=== PATIENT | male | born 1965 | race Caucasian/White ===

== ENCOUNTER 2019-07-11 07:06 | Day surgery (SDC) | payer MEDICAID ==
[~2019-07-11] VITALS: Ht 182.9 cm; Wt 72.7 kg
[2019-07-11 07:14] VITALS: BP 131/74
[2019-07-11] MEDS ORDERED: LIDOcaine Viscous 15ml cup ONE (07:21)
[2019-07-11] MEDS ORDERED: fentaNYL/PF 50MCG/1 ML 2ML syringe ONE (07:21)
[2019-07-11] MEDS ORDERED: HYDR-4353 PO (07:21)
[2019-07-11] MEDS ORDERED: MIDAZolam 5mg/5ml vial ONE (07:21)
[2019-07-11 08:40] VITALS: BP 99/57
[2019-07-11 08:50] VITALS: BP 99/55
[2019-07-11 09:00] VITALS: BP 95/64
== END 2019-07-11 09:15 | disposition home or self-care (01) ==
LOC: GI LAB 07:06
PROVIDERS: ATTEND Internal Medicine Gastroenterology
DX: Z12.11 Encounter for screening for malignant neoplasm of colon (principal); K64.8 Other hemorrhoids; Z87.19 Personal history of other diseases of the digestive system
CPT/HCPCS: 45378; 99152; 99153; J2250; J3010; J7040; A4620

== ENCOUNTER 2021-02-15 23:51 | Emergency (ER) | payer MEDICAID ==
[~2021-02-15] VITALS: Ht 177.8 cm; Wt 90.9 kg
[~2021-02-15 23:51] MED LIST: HYDR-4353 PO
[2021-02-16 00:55] LABS: BASOPHILS # (AUTO) 0.1 X10'3 (0-0.2); BASOPHILS % (AUTO) 1.4 % (0-1); EOSINOPHILS # (AUTO) 0.8 X10'3 (0-0.9); EOSINOPHILS % (AUTO) 11.8 % (0-6); HEMATOCRIT 42.6 % (42.0-52.0); HEMOGLOBIN 14.5 g/dl (14.0-17.9); LYMPHOCYTES % (AUTO) 30.7 % (21-51); MEAN CORPUSCULAR HEMOGLOBIN 30.6 PG (27.0-31.0); MEAN CORPUSCULAR HGB CONC 34.1 g/dL (33.0-36.5); MEAN CORPUSCULAR VOLUME 89.7 FL (78-98); MEAN PLATELET VOLUME 7.6 FL (7.4-10.4); MONOCYTES # (AUTO) 0.6 X10'3 (0-0.9); MONOCYTES % (AUTO) 8.9 % (2-12); NEUTROPHILS # (AUTO) 3.1 X10'3 (1.8-7.7); NEUTROPHILS % (AUTO) 47.2 % (42-75); PLATELET COUNT 273 X10'3 (140-440); RED BLOOD COUNT 4.76 X10'6 (4.70-6.10); WHITE BLOOD COUNT 6.5 X10'3 (4.5-11.0)
[2021-02-16 01:13] LABS: ALBUMIN 4.4 G/DL (3.4-5.0); ANION GAP 10 (8-16); BLOOD UREA NITROGEN 23 MG/DL (7-18); BUN/CREATININE RATIO 20.7 (5.4-32.0); CALCIUM 9.5 MG/DL (8.5-10.1); CHLORIDE 104 MMOL/L (99-107); CREATININE 1.11 MG/DL (0.60-1.10); GLUCOSE 106 MG/DL (70-104); POTASSIUM 3.8 MMOL/L (3.5-5.1); SODIUM 142 MMOL/L (135-145); TOTAL CARBON DIOXIDE 27.6 MMOL/L (24-32); eGFR 69 ML/MIN
--- NOTE | 2021-02-16 01:17 | NUR ---
VASCULAR PAGED AT [id number]
[2021-02-16 01:39] LABS: D-DIMER 0.72 MG/L FEU (0-0.50)
[2021-02-16] MEDS ORDERED: iohexol 350MG/ML 100ml bottle IV ONE (01:50)
[2021-02-16 03:19] VITALS: BP 132/65
== END 2021-02-16 03:21 | disposition home or self-care (01) ==
LOC: ER 23:51
DX: R22.42 Localized swelling, mass and lump, left lower limb (principal); M79.605 Pain in left leg; R05.9 Cough, unspecified; R53.1 Weakness; R42 Dizziness and giddiness; R07.89 Other chest pain; Z79.899 Other long term (current) drug therapy; Z87.81 Personal history of (healed) traumatic fracture; Z86.16 Personal history of COVID-19
CPT/HCPCS: 36415; 71045; 71275; 80048; 84484; 85025; 85379; 93005; 93971; 99285; Q9967; 99282

== ENCOUNTER 2024-10-22 17:40 | Emergency (ER) | payer BC, MEDICAID ==
[~2024-10-22] VITALS: Ht 182.9 cm; Wt 90.9 kg
[2024-10-22 17:52] VITALS: BP 160/85; PULSE 105; RESP 16; TEMP 98.6; O2SAT 95
--- NOTE | 2024-10-22 18:01 | Physician Documentation ---
History of Present Illness ~ Chief Complaint: ETOH Withdrawl Stated Complaint: WTIHDRAWLS Time Seen by MD: 18:26 HPI This is a 58-year-old male with a history of heavy alcohol use who presents with alcohol withdrawal symptoms, nausea, vomiting, abdominal pain, chest pain, and shortness of breath. Patient reports that he normally drinks approximately 12 beers a day and his last drink was this morning. And states he wants to quit drinking alcohol does not tolerate the shakes well denies any history of seizures Tetanus within 5 years?: No Medication Reconciliation Allergies: Coded Allergies: amoxicillin (Verified Allergy, Unknown, 10/22/24) Scheduled Chlordiazepoxide Hcl (Librium), 25 MG PO TID Scheduled PRN Hydrocodone Bit/Acetaminophen ([place] 10-325 Tablet), 1-2 TAB PO Q4HPRN PRN for pain, (Reported) Past Medical History Past Medical History: Extremity Fracture Past Surgical History: orthopedic surgeries Alcohol Use: None Drug Use: none Lives with: Other Lives In: Home Review of Systems ROS As stated above in the HPI, otherwise all systems are reviewed and negative. Physical Exam Vital Signs: Temperature: 98.6, Source: Temporal, Heart Rate: 105, Respiratory Rate: 16, BP: 160/85, Pulse Oximetry: 95, Weight: 90.910 Oxygen Flow Rate: 0 Physical Exam VITALS: Reviewed and as above. GENERAL: Alert, nontoxic appearing, no apparent distress. HEENT: RESPIRATORY: No increased work of breathing, no respiratory distress, speaking in full clear sentences CHEST: CV: BACK: GI: MUSCULOSKELETAL: SKIN: NEURO: Tremulous PSYCH: Anxious appearing, Progress Results/Orders Results/Orders Orders - [facility] [employer] [facility] Lidocaine 2% Viscous (Xylocaine 2% Visco (10/22/24 20:50) Completed Orders - [facility] [employer] [facility] Diazepam Inj (Valium Inj) (10/22/24 18:45) Folic Acid Inj. (Folic Acid Inj.) (10/22/24 18:45) Ondansetron Inj. (Zofran 4mg/2ml Vial) (10/22/24 18:45) Thiamine Inj. (Thiamine Inj.) (10/22/24 18:45) Magnesium Sulf-Water 2g/50ml (Magnesium (10/22/24 18:45) Normal Saline 1000ml (0.9% Sodium Chlori (10/22/24 18:45) Diazepam Inj (Valium Inj) (10/22/24 20:50) Mag & Alum Hydrox/Simeth Susp (Maalox Or (10/22/24 20:50) Medications Received in ER Medications (Trade) Dose Ordered Sig/Jayda Route PRN Reason Start Time Stop Time Status Last Admin Dose Admin (Valium inj) 10 mg ONCE ONCE IV 10/22/24 18:45 10/22/24 18:46 DC 10/22/24 19:19 10 MG (folic acid inj.) 1 mg ONCE ONCE IV 10/22/24 18:45 10/22/24 18:46 DC 10/22/24 19:20 1 MG (Zofran 4mg/2ml vial) 4 mg ONCE ONCE IV 10/22/24 18:45 10/22/24 18:46 DC 10/22/24 19:19 4 MG (thiamine inj.) 100 mg ONCE ONCE IV 10/22/24 18:45 10/22/24 18:49 DC 10/22/24 19:23 100 MG Magnesium Sulfate 50 ml @ 25 mls/hr ONCE ONCE IV 10/22/24 18:45 10/22/24 20:44 DC 10/22/24 19:15 25 MLS/HR (0.9% sodium chloride (NS) 1000ml IV soln) 2,000 ml ONCE ONCE IVB 10/22/24 18:45 10/22/24 18:46 DC 10/22/24 19:13 1,000 ML (Valium inj) 5 mg ONCE ONCE IV 10/22/24 20:50 10/22/24 20:55 DC 10/22/24 21:00 5 MG (Maalox oral suspension) 30 ml ONCE ONCE PO 10/22/24 20:50 10/22/24 20:51 DC 10/22/24 20:59 30 ML (Xylocaine 2% Viscous 15mL cup) 15 ml Q4H PRN MM sore throat 10/22/24 20:50 10/22/24 21:03 15 ML Vital Signs 10/22/24 10/22/24 17:52 19:32 Temp 98.6 Pulse 105 Resp 16 B/P (MAP) 160/85 Pulse Ox 95 O2 Flow Rate 0 Laboratory Tests Test 10/22/24 18:13 10/22/24 20:07 White Blood Count 6.0 Red Blood Count 4.71 Hemoglobin 15.2 Hematocrit 43.6 Mean Corpuscular Volume 92.7 Mean Corpuscular Hemoglobin 32.2 H Mean Corpuscular Hemoglobin Concent 34.8 Red Cell Distribution Width 12.7 Platelet Count 254 Mean Platelet Volume 7.4 Neutrophils (%) (Auto) 64.0 Lymphocytes (%) (Auto) 21.2 Monocytes (%) (Auto) 6.6 Eosinophils (%) (Auto) 7.8 H Basophils (%) (Auto) 0.4 Neutrophils # (Auto) 3.8 Lymphocytes # (Auto) 1.3 Monocytes # (Auto) 0.4 Eosinophils # (Auto) 0.5 Basophils # (Auto) 0.0 CBC Comment Sodium Level 135 Potassium Level 4.0 Chloride Level 99 Carbon Dioxide Level 27.7 Anion Gap 8 Blood Urea Nitrogen 5 L Creatinine 0.85 Estimated GFR/1.73 m2 > 90 BUN/Creatinine Ratio 5.9 L Glucose Level 140 H Calcium Level 8.9 Magnesium Level 1.9 Total Bilirubin 0.5 Aspartate Amino Transf (AST/SGOT) 30 Alanine Aminotransferase (ALT/SGPT) 35 Alkaline Phosphatase 71 Troponin I High Sensitivity 11 10 Pro-B-Type Natriuretic Peptide < 30 Total Protein 8.0 Albumin 4.3 Globulin 3.7 Albumin/Globulin Ratio 1.2 Lipase 27 Chemistry Comments Ethyl Alcohol Level 29 H Troponin I High Sens Percent Delta 9 Troponin I Hi Sens Absolute Change -1 Medical Decision Making Findings Patient was treated for acute alcohol withdrawal via fluids thiamine folic acid Valium and magnesium sulfate He states he feels much better. At this stage, I feel safe discharging him with a tapering dose of Librium Differential Dx:Considerations: Intoxication - ETOH, Intoxication - other drug, Sub. Abuse -continuous, Sub. Abuse-intermittent, Skull fracture, Fracture - other bone, Personality disorder, Closed head injury, Cervical spine injury, Abrasion, Confusion, Hematoma, Laceration, Foreign body, Dehydration, Encephalopathy, Hepatitis, Pancreatitis, Thiamine deficiency, Other Departure Disposition: 01 HOME / SELF CARE / HOMELESS Impression: Primary Impression: Alcohol withdrawal syndrome Condition: Stable Discharge Instructions: Alcohol Intoxication Referrals: NO PRIMARY CARE PROVIDER (PCP) Prescriptions Omeprazole (Prilosec) 40 Mg Capsule 1 CAP PO DAILY for 30 Days, #30 CAP Prov: [facility] [employer] 10/22/24 Chlordiazepoxide Hcl (Librium) 25 Mg Capsule 25 MG PO TID for alcohol withdrawl for 5 Days, #15 CAP 0 Refills Prov: [facility] 10/22/24 Education Educated: Patient Educated regarding: diagnosis Signature Scribe Signature: u Attestation: Scribed for [employer] 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 10/22/24 20:21 MARTA SANDOVAL Oct 22, 2024 18:01 [facility] KOO NP Oct 22, 2024 20:22
--- NOTE | 2024-10-22 18:03 | ELECTROCARDIOGRAPH REPORT ---
[facility] Test Date: 2024-10-22 Test Time: 18:01:21 Pat Name: EDNA TINSLEY Department: [facility]- Patient ID: [id number] Room: Gender: M Senior It Architect: : [id number] Requested By: MARTA SANDOVAL Order Number: [id number] Reading MD: Measurements Intervals [place] Rate: 105 P: 65 CT: 126 QRS: 54 QRSD: 87 T: 61 QT: 337 QTc: 446 Interpretive Statements Sinus tachycardia Probable left atrial enlargement Please click the below link to view image of tracing.
--- NOTE | 2024-10-22 18:23 | RADIOLOGY REPORT ---
CHEST RADIOGRAPH Indication: CP Technique: DI CHEST,SINGLE VIEW Comparison: None FINDINGS: The cardiac silhouette is unremarkable. The lungs demonstrate no pulmonary airspace consolidation. Th e pulmonary vasculature is prominent. There is no pleural effusion. There is no pneumothorax. IMPRESSION: Mild pulmonary vascular congestion.
[2024-10-22 18:45] LABS: MEAN PLATELET VOLUME 7.4 FL (7.4-10.4); RED CELL DISTRIBUTION WIDTH 12.7 % (11.5-14.5)
[2024-10-22] MEDS: normal saline 1000ML IV soln IVB ONE (19:13)
[2024-10-22] MEDS: magnesium sulf-water 2g/50mL 50 ML IV ONE (19:15)
[2024-10-22] MEDS: diazepam inj 5 MG/ML inj. IV ONE ×2 (19:19→21:00)
[2024-10-22] MEDS: ondansetron/PF 4mg/2ml inj IV ONE (19:19)
[2024-10-22] MEDS: folic acid 1mg/0.2ml inj IV ONE (19:20)
[2024-10-22] MEDS: thiamine 100mg/ml 2ml inj. IV ONE (19:23)
[2024-10-22 19:28] LABS: CREATININE 0.85 MG/DL (0.60-1.10); TOTAL CARBON DIOXIDE 27.7 MMOL/L (24-32); eCRCL 107 ML/MIN; eGFR > 90 ML/MIN
[2024-10-22 19:34] LABS: ETHANOL 29 MG/DL (<10); PRO BRAIN NATRIURETIC PEPTIDE < 30 PG/ML (0-125)
[2024-10-22] MEDS ORDERED: CHLO25CA10 PO (20:19)
[2024-10-22] MEDS: mag hydrox/Alum hydrox/simeth 30ml oral suspension PO ONE (20:59)
[2024-10-22] MEDS: LIDOcaine 2% Viscous 15ml cup MM PRN (21:03)
[2024-10-22] MEDS ORDERED: OMEP40CA21 PO (21:07)
== END 2024-10-22 21:09 | disposition home or self-care (01) ==
LOC: ER 17:41
DX: F10.239 Alcohol dependence with withdrawal, unspecified (principal); Z88.1 Allergy status to other antibiotic agents; Z79.899 Other long term (current) drug therapy; Y90.1 Blood alcohol level of 20-39 mg/100 ml
CPT/HCPCS: 36415; 71045; 80053; 80320; 83690; 83735; 83880; 84484; 85025; 93005; 96365; 96366; 96375; 96376; 99285; J2405; J3360; J3411; J3490; J7030